=== PATIENT | male | born 1990 | race Caucasian/White ===

== ENCOUNTER 2018-09-21 22:55 | Inpatient (IN) | payer MEDICAID ==
[~2018-09-21] VITALS: Ht 167.6 cm
[2018-09-22] VITALS (26 sets, daily range): BP systolic 92–166; BP diastolic 59–83; Ht 167.6 cm
[2018-09-22 02:00] LABS: INR 1.21 (0.85-1.17); PROTIME 14.8 SECONDS (11.6-15.0)
[2018-09-22 02:03] LABS: ALKALINE PHOSPHATASE 64 U/L (46-116); ALT (SGPT) 40 U/L (10-68); BILIRUBIN - TOTAL 1.05 mg/dL (0.2-1.3); CALC OSMOLALITY 283 mosm/kg (275-300); CARBON DIOXIDE 22.1 mmol/L (21.0-32.0); CHLORIDE - SERUM 102 mmol/L (98-107); CREATININE - SERUM 0.8 mg/dL (0.6-1.3); GLUCOSE 92 mg/dL (74-106); POTASSIUM - SERUM 3.7 mmol/L (3.5-5.1); PROTEIN - SERUM 7.8 g/dL (6.4-8.2); SODIUM 141 mmol/L (136-145); UREA NITROGEN 20 mg/dL (7-18); eGFR NON AFRICAN AMERICAN > 90 mL/min (90-120)
[2018-09-23] VITALS (24 sets, daily range): BP systolic 96–122; BP diastolic 48–89
[2018-09-23 10:59] LABS: ALBUMIN 3.5 g/dL (3.4-5.0); ALKALINE PHOSPHATASE 61 U/L (46-116); ALT (SGPT) 190 U/L (10-68); BILIRUBIN - TOTAL 0.45 mg/dL (0.2-1.3); CALC OSMOLALITY 285 mosm/kg (275-300); CALCIUM 8.7 mg/dL (8.5-10.1); CARBON DIOXIDE 24.6 mmol/L (21.0-32.0); CHLORIDE - SERUM 106 mmol/L (98-107); GLUCOSE 100 mg/dL (74-106); POTASSIUM - SERUM 4.2 mmol/L (3.5-5.1); PROTEIN - SERUM 7.4 g/dL (6.4-8.2); SODIUM 143 mmol/L (136-145); UREA NITROGEN 14 mg/dL (7-18); eGFR NON AFRICAN AMERICAN > 90 mL/min (90-120)
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
[2018-09-24] VITALS (14 sets, daily range): BP systolic 96–123; BP diastolic 61–84
[2018-09-24 10:39] LABS: ALBUMIN 3.5 g/dL (3.4-5.0); ALKALINE PHOSPHATASE 69 U/L (46-116); ALT (SGPT) 210 U/L (10-68); BILIRUBIN - TOTAL 0.35 mg/dL (0.2-1.3); CALC OSMOLALITY 281 mosm/kg (275-300); CALCIUM 9.3 mg/dL (8.5-10.1); CHLORIDE - SERUM 103 mmol/L (98-107); CREATININE - SERUM 0.9 mg/dL (0.6-1.3); GLUCOSE 100 mg/dL (74-106); POTASSIUM - SERUM 3.7 mmol/L (3.5-5.1); PROTEIN - SERUM 7.5 g/dL (6.4-8.2); SODIUM 141 mmol/L (136-145); UREA NITROGEN 15 mg/dL (7-18); eGFR NON AFRICAN AMERICAN > 90 mL/min (90-120)
[2018-09-24 18:54] LABS: INR 1.03 (0.85-1.17)
[2018-09-25] VITALS (8 sets, daily range): BP systolic 106–120; BP diastolic 62–79
[2018-09-26 07:15] VITALS: BP 117/71
[2018-09-26 14:00] VITALS: BP 120/84
[2018-09-26 15:00] VITALS: BP 109/73
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
[2018-09-26 19:00] VITALS: BP 110/65
[2018-09-26 20:33] VITALS: BP 117/71
[2018-09-26 23:00] VITALS: BP 120/78
[2018-09-27 08:00] VITALS: BP 115/63
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
== END 2018-09-27 13:53 | disposition short-term general hospital (02) | DRG 918 ==
LOC: D.ICU 22:55
PROVIDERS: ADMIT Internal Medicine Nephrology
DX: T39.1X2A Poisoning by 4-Aminophenol derivatives, intentional self-harm, initial encounter (principal); R45.851 Suicidal ideations; F32.9 Major depressive disorder, single episode, unspecified